=== PATIENT | female | born 1980 | race Two or more races ===

== ENCOUNTER 2023-01-21 09:36 | Outpatient (CLI) | payer OTHER ==
[2023-01-21 10:55] LABS: HEMATOCRIT 37.1 % (36.0-45.00); HEMOGLOBIN 12.3 g/dL (12.0-15.00); MEAN CELL VOLUME 84.9 fL (80.00-100.00); MEAN CORPUSCULAR HEMOGLOBIN 28.2 pg (27.00-32.0); MEAN CORPUSCULAR HGB CONC 33.3 g/dl (32.0-36.0); PLATELET COUNT 258 K/uL (150-450); RED BLOOD COUNT 4.37 M/uL (4.00-6.00); RED CELL DISTRIBUTION WIDTH 15.6 % (11.5-14.5)
[2023-01-21 11:11] LABS: PH,URINE 6.5 (5.0-8.0); URINE APPEARANCE Clear; URINE BILIRRUBIN Negative (NEGATIVE); URINE BLOOD Moderate; URINE COLOR Yellow; URINE GLUCOSE Negative (NEGATIVE); URINE LEUKOCYTE Trace; URINE NITRATE Negative; URINE PROTEIN Negative (NEGATIVE); URINE UROBILINOGEN 0.2 E.U./dl
[2023-01-21 11:12] LABS: URINE EPITHELIAL CELLS 11.7 uL (0.0-38.8); URINE RBC 30.7 uL (0.0-20.8); URINE WBC 35.5 uL (0.0-23.2)
[2023-01-21 11:21] LABS: INR 1.01; PARTIAL THROMBOPLASTIN TIME 25.9 SECONDS (22.0-34.0); PROTHROMBIN TIME 10.6 SECONDS (9.0-11.5)
[2023-01-21 11:28] LABS: ALBUMIN 3.9 gm/dL (3.4-5.0); BILIRUBIN TOTAL 0.52 mg/dL (0.3-1.2); CALCIUM 9.1 mg/dL (8.5-10.1); CHOL HDL RATIO 3.9 (0-5.0); CREATININE SERUM 0.78 mg/dL (0.55-1.02); GFR 80.23; GLOBULINA 3.1 G/DL (2.4-3.5); POTASSIUM 4.53 mEq/L (3.5-5.1); TSH 1.14 uIU/mL (0.358-3.74)
[2023-01-21 11:37] LABS: COL EPI 112 SECONDS (82-175)
[2023-01-21 11:37] LABS: URINE BACTERIA > 9821.5 uL (0.0-1933)
== END 2023-01-21 09:56 | disposition home or self-care (01) ==
LOC: LAB 09:36
PROVIDERS: ATTEND Orthopaedic Surgery
DX: D64.9 Anemia, unspecified (principal); D68.8 Other specified coagulation defects; N39.0 Urinary tract infection, site not specified; Z20.822 Contact with and (suspected) exposure to COVID-19; E55.9 Vitamin D deficiency, unspecified; E11.9 Type 2 diabetes mellitus without complications; E03.8 Other specified hypothyroidism; E88.89 Other specified metabolic disorders; I10 Essential (primary) hypertension; R10.9 Unspecified abdominal pain; E78.5 Hyperlipidemia, unspecified; E03.9 Hypothyroidism, unspecified

== ENCOUNTER 2023-01-21 09:42 | Outpatient (CLI) | payer OTHER | END 2023-01-21 09:55 | disposition home or self-care (01) | LOC: MRI 09:42 | PROVIDERS: ATTEND Orthopaedic Surgery | DX: M79.605 Pain in left leg (principal); Z76.89 Persons encountering health services in other specified circumstances | CPT/HCPCS: 71046; 73723; Q9965; 73221; 73721 ==

== ENCOUNTER 2023-01-21 13:20 | Outpatient (CLI) | payer OTHER | END 2023-01-21 13:23 | disposition home or self-care (01) | LOC: NUCLEAR 13:20 | PROVIDERS: ATTEND Orthopaedic Surgery | DX: M81.0 Age-related osteoporosis without current pathological fracture (principal) ==

== ENCOUNTER 2023-02-15 12:38 | Outpatient (CLI) | payer OTHER | END 2023-02-15 12:47 | disposition home or self-care (01) | LOC: RAD 12:38 | PROVIDERS: ATTEND Orthopaedic Surgery | DX: S62.336D Displaced fracture of neck of fifth metacarpal bone, right hand, subsequent encounter for fracture with routine healing (principal) ==

== ENCOUNTER 2023-03-17 10:00 | Outpatient (CLI) | payer OTHER | END 2023-03-17 10:12 | disposition home or self-care (01) | LOC: RAD 10:00 | PROVIDERS: ATTEND Orthopaedic Surgery | DX: S62.336D Displaced fracture of neck of fifth metacarpal bone, right hand, subsequent encounter for fracture with routine healing (principal) ==